=== PATIENT | female | born 1955 | race African-American/Black ===

== ENCOUNTER 2020-01-11 10:33 | Outpatient (CLI) | payer MEDICARE, MEDICAID ==
--- NOTE | 2020-01-11 12:41 | RAD ---
2 VIEW CHEST: Date: 01/11/2020 HISTORY: History of smoking. Comparison made to exam of 07/01/2016. FINDINGS: Lungs show no evidence of infiltrate. There is a calcified nodule in the anterior right upper lung wh ich is stable. Heart and mediastinum unremarkable. Vasculature normal. osseous structures unremarkable. IMPRESSION: No acute process. No interval change. POS: AGW
--- NOTE | 2020-01-11 13:03 | MMO ---
Bilateral MAMMO Bilat Screen [facility]. CLINICAL HISTORY: Patient is 64 years old and is seen for screening. The patient has no family history of breast cancer. The patient has no personal history of cancer. The patient has a history of right Excisional Biopsy in 1985 - benign. VIEWS: The views performed were: bilateral craniocaudal with tomosynthesis and bilateral mediolateral oblique with tomosynthesis. FILMS COMPARED: The present examination has been compared to prior imaging studies performed at [facility] on 07/16/2017 and 08/05/2018, and at [facility] on 01/23/2015 and 02/15/2016. This study has been interpreted with the assistance of computer-aided detection. MAMMOGRAM FINDINGS: The breasts are heterogeneously dense, which could obscure a lesion on mammography. Finding 1: There are stable benign appearing densities seen in both breasts. Finding 2: There are stable benign appearing densities seen in both breasts. There are no suspicious masses, suspicious calcifications, or new areas of architectural distortion. IMPRESSION: THERE IS NO MAMMOGRAPHIC EVIDENCE OF MALIGNANCY. A ROUTINE FOLLOW-UP MAMMOGRAM IN 1 YEAR IS RECOMMENDED. THE RESULTS OF THIS EXAM WERE SENT TO THE PATIENT. ACR BI-RADS Category 2 - Benign finding MAMMOGRAPHY NOTE: 1. A negative mammogram report should not delay a biopsy if a dominant of clinically suspicious mass is present. 2. Approximately 10% to 15% of breast cancers are not detected by mammography. 3. Adenosis and dense breasts may obscure an underlying neoplasm. Reported by: TRUDY SANTOS MD Electonically Signed: [id number]
== END 2020-01-11 10:34 | disposition home or self-care (01) ==
LOC: BICMAMMO 10:33
PROVIDERS: ATTEND Family Medicine
DX: Z12.31 Encounter for screening mammogram for malignant neoplasm of breast (principal); F17.200 Nicotine dependence, unspecified, uncomplicated; Z91.89 Other specified personal risk factors, not elsewhere classified
CPT/HCPCS: 71046; 77063; 77067

== ENCOUNTER 2021-02-07 08:16 | Outpatient (CLI) | payer MEDICARE, MEDICAID | END 2021-02-07 08:17 | disposition home or self-care (01) | LOC: BICMAMMO 08:16 | PROVIDERS: ATTEND Family Medicine | DX: Z12.31 Encounter for screening mammogram for malignant neoplasm of breast (principal); R05.9 Cough, unspecified; F17.200 Nicotine dependence, unspecified, uncomplicated; Z91.89 Other specified personal risk factors, not elsewhere classified | CPT/HCPCS: 71046; 77063; 77067 ==

== ENCOUNTER 2022-02-13 07:55 | Outpatient (CLI) | payer OTHER, MEDICAID | END 2022-02-13 07:56 | disposition home or self-care (01) | LOC: BICULT 07:55 | PROVIDERS: ATTEND Family Medicine | DX: Z12.31 Encounter for screening mammogram for malignant neoplasm of breast (principal); J45.30 Mild persistent asthma, uncomplicated; K76.89 Other specified diseases of liver; N28.1 Cyst of kidney, acquired; Z91.89 Other specified personal risk factors, not elsewhere classified | CPT/HCPCS: 71046; 76700; 77063; 77067 ==